=== PATIENT | female | born 1955 | race Caucasian/White ===

== ENCOUNTER 2018-09-07 11:03 | Observation (INO) ==
[2018-09-07] MEDS ORDERED: 0.9 % Sodium Chloride 500 ML IVC ONE (11:12)
--- NOTE | 2018-09-07 11:12 | Emergency Department Note ---
Disposition Clinical Impression: Chest pain Qualifiers: Chest pain type: precordial pain Qualified Code(s): R07.2 - Precordial pain Syncope Qualifiers: Syncope type: unspecified Qualified Code(s): R55 - Syncope and collapse Disposition: Transfer Short-Term Hosp Condition: Fair Referrals: Janet Calles, APPLICATION INTEGRATION SPECIALIST [Primary Care Provider] - Forms: ED Satisfaction Letter Time of Disposition: 14:21 Chest Pain HPI - General Chief Complaint: ED Chest Pain Stated Complaint: vertigo, chest pain Time Seen by Provider: 09/07/18 11:07 Source: patient, EMS Mode of arrival: EMS Limitations: no limitations Vital Signs Reviewed: Yes Nursing Notes Reviewed: Yes - History of Present Illness HPI Narrative: Patient relates about 45 minutes prior to arrival she had onset of feeling "super dizzy" while sitting. She states she then "passed out on the couch". She was not having vertiginous dizziness. She denies any injury. She says initially she is having no chest pain or palpitation but when she is being transported by EMS she had an ache in her chest. This radiated to the mid scapular region. She can only describe it as a "just hurt". This was not ripping or tearing. She has had some slight shortness of breath but denies diaphoresis. She denies abdominal pain. She has had nausea and vomiting with the pain. She denies any low back pain and right lower extremity complaints. She has not had recent immobilization, injury or leg swelling. She does have history of previous [place]. At time of my examination her complaint is that she is "just cold and nauseated". She states she is no longer having the pain. She does look somewhat pale and uncomfortable. Her blood pressure on arrival is 116/81 with a heart rate of 75. EMS did establish an IV and transmit an EKG. This demonstrated a heart rate of about 60 with significant baseline artifact. This was a sinus rhythm and did not demonstrate acute ST or T-wave changes. This is on my interpretation. Pt complaint: chest pain, other (Syncope) Onset (ago): minute(s) (45) Duration: constant Onset: during rest Pain Location: substernal Severity: moderate Quality: other ("Just hurting") Pain Radiation: back (Mid scapular) Improves with: nothing Worsens with: nothing Associated symptoms: Reports: nausea, vomiting, diaphoresis, dyspnea. Denies: syncope, palpitations, fever, cough, leg swelling Treatments prior to arrival chest pain: aspirin (By EMS) - Related Data Home Medications Medication Instructions Recorded Confirmed Carvedilol [Coreg] 25 mg PO BID 09/07/18 09/07/18 Chlorthalidone 50 mg PO DAILY 09/07/18 09/07/18 Ergocalciferol (VITAMIN D2) 50,000 unit PO DAILY 09/07/18 09/07/18 [Vitamin D2] Losartan Potassium [Cozaar] 100 mg PO DAILY 09/07/18 09/07/18 Nitroglycerin [Nitrostat] 0.4 mg SL Q5-10MIN PRN 09/07/18 09/07/18 Pantoprazole Sodium [Protonix] 40 mg PO BID 09/07/18 09/07/18 Pravastatin Sodium [Pravachol] 40 mg PO DAILY 09/07/18 09/07/18 Sertraline [Zoloft] 50 mg PO DAILY 09/07/18 09/07/18 hydrOXYzine HCl [Hydroxyzine HCl] 50 mg PO TID PRN 09/07/18 09/07/18 Allergies Allergy/AdvReac Type Severity Reaction Status Date / Time No Known Allergies Allergy Verified 09/07/18 11:04 All systems ED: reviewed and negative except as stated. Chest Pain PMH - Past Medical History Medical history: Reports: coronary artery disease, hyperlipidemia, hypertension, myocardial infarction Surgical history: Reports: angioplasty/stent, hysterectomy Psychiatric history: Reports: anxiety - Social History Smoking Status: Former smoker Alcohol use: Reports: none Drug use: Reports: none Physical Exam - General Limitations: no limitations General appearance: alert, anxious - Head Head exam: atraumatic, normocephalic, normal inspection - Eye Eye exam: Present: normal appearance, PERRL, EOMI. Absent: scleral icterus, conjunctival injection - ENT ENT exam: normal exam, normal oropharynx, mucous membranes moist - Neck Neck exam: Present: normal inspection, full ROM, trachea midline - Chest Chest inspection: Present: normal inspection, symmetric chest wall rise - Respiratory Respiratory exam: Present: normal lung sounds bilaterally. Absent: respiratory distress, wheezes, prolonged expiratory phase - Cardiovascular Cardiovascular exam: Present: regular rate, normal rhythm, normal heart sounds. Absent: bradycardia, tachycardia - Abdominal Exam Abdominal exam: Present: soft, Non-Tender, normal bowel sounds. Absent: tenderness, distention, guarding, rebound, rigidity, pulsatile mass - Extremities Exam Extremities exam: Present: normal inspection, full ROM, normal capillary refill. Absent: tenderness, pedal edema, calf tenderness - Expanded Lower Extremity Exam Neurovascular/Tendon exam: Present: normal capillary refill. Absent: motor deficit, sensory deficit, tendon deficit Gait: not tested/not observed - Back Exam Back exam: Present: normal inspection, full ROM. Absent: tenderness - Neurological Exam Neurological exam: Present: alert, oriented X3 - Psychiatric Psychiatric exam: Present: normal affect, anxious - Skin Skin exam: Present: warm, dry, intact, pallor. Absent: diaphoresis Course Course Narrative: 1157: I have contacted radiology as this patient has mild elevation of her creatinine and a GFR of 36. This may require adjustment to her study or transfer for ultrasound evaluation. She is resting comfortably at this time and maintaining good pulse, respirations and blood pressure. Blood pressure is 110/69 and a heart rate of 85, respiratory rate of 23 and an oxygen saturation of 97% on supplemental oxygen. 1220: Radiologist was agreeable with performing the CT angiogram of the chest/aorta with a reduced contrast bolus. Advised this will decrease the sensitivity of the test but will be preservative to kidney function. She has received a saline bolus and will continue with IV fluids. She will need continued observation, IV fluids and recheck of her renal function inpatient. 1420: With return of all testing, care has been discussed with the patient, family and Dr. Villanueva. Given her mild renal insufficiency and administration of IV contrast, continued IV hydration and recheck of her chemistries would be indicated inpatient. She also has no clear etiology for her episode of syncope or subsequent chest pain. Repeat troponin has been ordered for 6 PM and repeat chemistries for the morning. She will need to remain on monitoring to evaluate for possible dysrhythmia. I believe she is currently stable for observation at this facility. Dr. Villanueva has given verbal orders for observation. Vital Signs Temperature 99.1 F 09/07/18 11:05 Pulse Rate 85 09/07/18 11:05 Respiratory Rate 18 09/07/18 11:05 Blood Pressure 116/81 09/07/18 11:05 O2 Sat by Pulse Oximetry 92 09/07/18 11:05 Temperature 99.1 F 09/07/18 11:05 Pulse Rate 91 09/07/18 13:13 Respiratory Rate 16 09/07/18 13:13 Blood Pressure 121/62 09/07/18 13:13 O2 Sat by Pulse Oximetry 94 09/07/18 13:13 Oxygen Delivery Oxygen Delivery Nasal Cannula Chest Pain - Differential Diagnosis Likely: unstable angina pectoris (Aortic dissection), atypical chest pain, costalchondritis, chest pain - Medical Records Medical records reviewed: Yes I reviewed the patient's medical records. - Lab Data Lab results reviewed: Yes I reviewed the patient's lab results. Result diagrams: 09/07/18 11:27 09/07/18 11:27 Lab Results 09/07/18 09/07/18 09/07/18 Range/Units 11:27 11:27 11:27 WBC 10.2 (4.3-11.1) K/mcL RBC 4.43 (3.82-4.97) M/mcL Hgb 14.4 (11.5-15.4) g/dL Hct 42.5 (35.3-44.9) % MCV 95.9 (83.0-100.0) fL MCH 32.5 (28.0-33.3) pg MCHC 33.9 (31.6-35.5) g/dL RDW 12.8 (11.5-14.5) % Plt Count 157 (140-400) K/mcL MPV 10.2 (9.4-12.4) fL Immature Gran % 0.2 (0-4) % Seg Neutrophils % 88.0 % Lymphocytes % 7.8 % Monocytes % 1.9 % Eosinophils % 1.7 % Basophils % 0.4 % Neutrophils # 9.0 H (1.6-8.9) K/mcL Lymphocytes # 0.8 (0.6-4.6) K/mcL Monocytes # 0.2 (0.0-1.3) K/mcL Eosinophils # 0.2 (0.0-0.6) K/mcL Basophils # 0.0 (0.0-0.2) K/mcL PT 11.4 (9.4-12.1) Seconds INR 1.0 APTT 28.2 (26.0-36.0) Seconds D-Dimer 1674 H (0-500) ng/mLFEU Sodium (136-145) mEq/L Potassium (3.5-5.1) mEq/L Chloride (98-107) mEq/L Carbon Dioxide (23-29) mEq/L BUN (8-23) mg/dL Creatinine (0.60-1.20) mg/dL Est GFR ( Amer) (> 60) Est GFR (Non-Af Amer) (> 60) BUN/Creatinine Ratio (6-26) Glucose (70-105) mg/dL Calculated Osmolality (280-300) Calcium (8.6-10.3) mg/dL Troponin I (< 0.04) ng/mL B-Natriuretic Peptide 29 (Less than 100) pg/mL 09/07/18 Range/Units 11:27 WBC (4.3-11.1) K/mcL RBC (3.82-4.97) M/mcL Hgb (11.5-15.4) g/dL Hct (35.3-44.9) % MCV (83.0-100.0) fL MCH (28.0-33.3) pg MCHC (31.6-35.5) g/dL RDW (11.5-14.5) % Plt Count (140-400) K/mcL MPV (9.4-12.4) fL Immature Gran % (0-4) % Seg Neutrophils % % Lymphocytes % % Monocytes % % Eosinophils % % Basophils % % Neutrophils # (1.6-8.9) K/mcL Lymphocytes # (0.6-4.6) K/mcL Monocytes # (0.0-1.3) K/mcL Eosinophils # (0.0-0.6) K/mcL Basophils # (0.0-0.2) K/mcL PT (9.4-12.1) Seconds INR APTT (26.0-36.0) Seconds D-Dimer (0-500) ng/mLFEU Sodium 140 (136-145) mEq/L Potassium 3.3 L (3.5-5.1) mEq/L Chloride 98 (98-107) mEq/L Carbon Dioxide 33 H (23-29) mEq/L BUN 23 (8-23) mg/dL Creatinine 1.48 H (0.60-1.20) mg/dL Est GFR ( Amer) 43 L (> 60) Est GFR (Non-Af Amer) 36 L (> 60) BUN/Creatinine Ratio 16 (6-26) Glucose 125 H (70-105) mg/dL Calculated Osmolality 295 (280-300) Calcium 9.2 (8.6-10.3) mg/dL Troponin I < 0.03 (< 0.04) ng/mL B-Natriuretic Peptide (Less than 100) pg/mL - Radiology Data Radiology results reviewed: Yes I reviewed the patient's radiology results. Single view chest x-ray is performed. This does not demonstrate evidence for infiltrate, effusion, pneumothorax, foreign body or heart failure. The cardiac silhouette is normal. I do not see abnormality to the osseous structures of the chest. This is on my interpretation. CT is performed of the chest, abdomen and pelvis with reduced IV contrast. Impressions Chest X-Ray 09/07/18 11:12 IMPRESSION: No acute process. Bibasilar hypoaeration D/ / Daniel Mcfarlane MD / Daniel Mcfarlane MD Interpreting Provider: Daniel Mcfarlane MD Chest CTA 09/07/18 11:13 IMPRESSION: No aortic dissection. Borderline dilated descending thoracic aorta measuring 3.1 cm. 3.6 cm abdominal aortic aneurysm. Recommend follow-up every 2 years. Reference: J Vasc Surg 2008;50(4 Suppl):S2-49. Multiple additional chronic findings as described above. D/ / Lc Treviño MD / Lc Treviño MD Interpreting Provider: Lc Treviño MD Abdomen/Pelvis CTA 09/07/18 13:25 IMPRESSION: No aortic dissection. Borderline dilated descending thoracic aorta measuring 3.1 cm. 3.6 cm abdominal aortic aneurysm. Recommend follow-up every 2 years. Reference: J Vasc Surg 2008;50(4 Suppl):S2-49. Multiple additional chronic findings as described above. D/ / Lc Treviño MD / Lc Treviño MD Interpreting Provider: Lc Treviño MD In the distal abdominal aorta there is abnormal lumen areas of wall thickening. The aorta is dilated to 3.4 x3.6 mm in this area. The opacified, perfusing lumen is a little over 2 cm in size. Mesenteric and splenic vessels do not appear to be impaired. I do not see evidence for pulmonary embolism, pneumonia, pneumothorax or heart failure. There is no evidence for free fluid or retroperi toneal fluid. This is on my interpretation. - EKG Data EKG attestation: Yes I reviewed and interpreted this EKG. EKG shows normal: sinus rhythm, axis, intervals, QRS complexes, ST-T waves Rate: normal (70) [place]/QRS: IVCD Interpretation: no acute changes, nonspecific ST-T wave changes Heart Score - Score History: Moderately Suspicious EKG: Non Specific repolarisation Disturbance Age: 45-65 Risk Factors: Equal/Greater than 3 risk factor or history of atherosclerotic disease Troponin: Less than normal limit HEART Score Total: 5
[2018-09-07] MEDS ORDERED: Isovue-370 500 ML BOTTLE IVP ONE ×2 (11:13→17:45)
[2018-09-07] MEDS ORDERED: Ondansetron 4 MG/2 ML VIAL IVP ONE (11:14)
[2018-09-07 11:33] LABS: Basophils % 0.4 %; Eosinophils # 0.2 K/mcL (0.0-0.6); Eosinophils % 1.7 %; Hematocrit 42.5 % (35.3-44.9); Hemoglobin 14.4 g/dL (11.5-15.4); Immature Granulocytes % 0.2 % (0-4); Lymphocytes # 0.8 K/mcL (0.6-4.6); Lymphocytes % 7.8 %; Mean Corpuscular HGB Conc 33.9 g/dL (31.6-35.5); Mean Corpuscular Hemoglobin 32.5 pg (28.0-33.3); Mean Corpuscular Volume 95.9 fL (83.0-100.0); Mean Platelet Volume 10.2 fL (9.4-12.4); Monocytes # 0.2 K/mcL (0.0-1.3); Monocytes % 1.9 %; Platelet Count 157 K/mcL (140-400); Red Blood Count 4.43 M/mcL (3.82-4.97); Red Cell Distribution Width 12.8 % (11.5-14.5); White Blood Count 10.2 K/mcL (4.3-11.1)
[2018-09-07 11:46] LABS: Prothrombin Time 11.4 Seconds (9.4-12.1)
[2018-09-07 11:48] LABS: Activated Partial Thrombo Time 28.2 Seconds (26.0-36.0); BUN/Creatinine Ratio 16 (6-26); Blood Urea Nitrogen 23 mg/dL (8-23); Calcium 9.2 mg/dL (8.6-10.3); Carbon Dioxide 33 mEq/L (23-29); Chloride 98 mEq/L (98-107); Glucose 125 mg/dL (70-105); Osmolality,Calculated 295 (280-300); Potassium 3.3 mEq/L (3.5-5.1); Sodium 140 mEq/L (136-145); eGFR For African Americans 43 (> 60); eGFR For Non-African Americans 36 (> 60)
[2018-09-07 11:52] LABS: Troponin I < 0.03 ng/mL (< 0.04)
[2018-09-07] MEDS ORDERED: 0.9 % Sodium Chloride 1,000 ML IVC SCH (12:30)
--- NOTE | 2018-09-07 16:13 | Electrocardiograph Report ---
[place] [id number] Test Date: 2018-09-07 Pat Name: Rosa Hill Department: EDP-16 Room: Gender: F Print Journalist: : 1955 Requested By: Nicholas Burger Order Number: [id number] Reading MD: Jared Fletcher Measurements Intervals [place] Rate: 70 P: 69 RI: 184 QRS: -31 QRSD: 113 T: 53 QT: 403 QTc: 435 Interpretive Statements Sinus rhythm Borderline IVCD with LAD Consider anterior infarct Electronically Signed On 09-07-2018 16:11:25 EDT by Jared Fletcher
[2018-09-07] MEDS ORDERED: Nitroglycerin 0.4 MG TAB.SUBL SL PRN (17:45)
[2018-09-07] MEDS ORDERED: hydrOXYzine pamoate 25 MG CAPSULE PO PRN (17:45)
[2018-09-07] MEDS ORDERED: Ondansetron ODT 4 MG TAB.RAPDIS SL PRN (17:45)
[2018-09-07] MEDS ORDERED: Mag Hydrox/Al Hydrox/Simeth 30 ML UDC PO PRN (17:45)
[2018-09-07] MEDS ORDERED: Naloxone 0.4 MG/ML INJ IVP PRN (17:45)
[2018-09-07] MEDS ORDERED: MOM Conc 10 ML UD.LIQ PO PRN (17:45)
[2018-09-07] MEDS: 0.9 % Sodium Chloride 1,000 ML IVC SCH ×2 (18:08→21:09)
[2018-09-07] MEDS: Acetaminophen 325 MG TABLET PO PRN (21:54)
[2018-09-08] MEDS ORDERED: Acetaminophen 325 MG TABLET PO PRN (01:50)
[2018-09-08] MEDS: Acetaminophen 325 MG TABLET PO PRN (04:18)
[2018-09-08] MEDS: 0.9 % Sodium Chloride 1,000 ML IVC SCH (05:10)
[2018-09-08 08:01] LABS: Calcium 8.5 mg/dL (8.6-10.3); Potassium 2.7 mEq/L (3.5-5.1)
--- NOTE | 2018-09-08 12:02 | Internal Med History&Physical ---
Date of Encounter: 09/08/18 Time of Encounter: 11:30 Assessment and Plan (1) Syncope Current visit: Yes Status: Acute Now asymptomatic. Etiology not obvious. IV fluids have been started. Supplemental potassium will be given. Magnesium level will be checked. Qualifiers: Syncope type: unspecified Qualified Code(s): R55 - Syncope and collapse (2) Hypertension Current visit: Yes Status: Chronic Hold antihypertensive medication since blood pressure line low. Qualifiers: Hypertension type: essential hypertension Qualified Code(s): I10 - Essential (primary) hypertension (3) Hypokalemia Current visit: Yes Status: Acute Likely due to chlorthalidone. Hold chlorthalidone and give supplemental po tassium. (4) Hyperuricemia Current visit: Yes Status: Acute Uric acid was elevated at 8.3 on 06/10/2018. Recheck today. (5) CKD (chronic kidney disease) stage 3, GFR 30-59 ml/min Current visit: Yes Status: Chronic Monitor renal indices. (6) Chest pain Current visit: Yes Status: Acute Repeat cardiac enzymes were ordered in emergency room. Qualifiers: Chest pain type: precordial pain Qualified Code(s): R07.2 - Precordial pain (7) Abdominal aortic aneurysm Current visit: Yes Status: Acute Abdomen CTA showed 3.6 cm abdominal aortic aneurysm. Recommended follow-up in 2 years. Qualifiers: Presence of rupture: without rupture Qualified Code(s): I71.4 - Abdominal aortic aneurysm, without rupture Internal Medicine - H&P: HPI Chief complaint: Syncope, hypokalemia Admitted From: Emergency Dept Plans for Post Hospital Care: Home History of present illness: Ms. Hill is a 63 year old female who came to emergency room following a syncopal episode at home. She states she was sitting on the couch and developed a feeling of non-vertigo lightheadedness. She had loss of consciousness and fell over onto the couch without injury. Her significant other observed the syncopal episode and called EMS. She was brought to emergency room and evaluated and admitted to [facility] floor for ongoing care needs. She reports no fevers chills cough or dyspnea with the above episode. She had a slight sensation of chest pressure which has now resolved. She denies previous syncopal or near syncopal episodes. She denies orthostatic symptoms on arising from a seated position. She does not get angina or anginal equivalents on activities including ascending a flight of 12 steps at home. 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 She had one stent placed at the time of the first MA in 2003. She reports a heart cath a few years ago at [facility] showed no significant stenoses requiring intervention. She denies heart failure DVT or pulmonary embolus. Echocardiogram 01/12/2018 showed LVEF of 60%. There was mild aortic stenosis, mild mitral regurgitation, and mild tricuspid regurgitation. Interventricular septum and posterior wall thickness measurements were 1.23 and 0.82 cm respectively. There was LAE at 4.50 cm. The E/A ratio was 0.6. Neurologic history is negative for large distribution strokes or seizures. She denies previous syncopal or near syncopal episodes. Past Med Surg Social Fam HX - Past Medical History Medical history: coronary artery disease, hyperlipidemia, hypertension, myocardial infarction Psychiatric history: anxiety - Past Surgical History Surgical History: angioplasty/stent, hysterectomy Additional surgical history: bleeding ulcer about 3 years ago. - Social History Smoking Status: Former smoker Smokeless Tobacco Status: No Alcohol use: none Drug use: none - Family History Maternal Living Status: Hx Family Cardiac Disorders: Yes Hx Family Neurologic Disorders: Yes Father Living Status: Hx Family Cancer: Yes Sister Living Status: Hx Family Cancer: Yes Internal Medicine - H&P: Meds Carvedilol [Coreg] 25 mg PO BID 09/07/18 [History] Chlorthalidone 50 mg PO DAILY 09/07/18 [History] Ergocalciferol (VITAMIN D2) [Vitamin D2] 50,000 unit PO DAILY 09/07/18 [History] Losartan Potassium [Cozaar] 100 mg PO DAILY 09/07/18 [History] Nitroglycerin [Nitrostat] 0.4 mg SL Q5-10MIN PRN 09/07/18 [History] Pantoprazole Sodium [Protonix] 40 mg PO BID 09/07/18 [History] Pravastatin Sodium [Pravachol] 40 mg PO DAILY 09/07/18 [History] Sertraline [Zoloft] 50 mg PO DAILY 09/07/18 [History] hydrOXYzine HCl [Hydroxyzine HCl] 50 mg PO TID PRN 09/07/18 [History] Allergy/AdvReac Type Severity Reaction Status Date / Time No Known Allergies Allergy Verified 09/07/18 11:04 All Systems PM: A 10-system review of systems was performed and is negative for pertinent findings except as documented above in the HPI. Review of systems: Gen.: She states her weight has increased approximately 50 pounds in the past year. Cardiovascular: As per history of present illness Respiratory: She smoked from age [age] up to 1 pack per day. She has not had PFTs and does not use home oxygen. She has not been tested for JORDAN. GI: She had bleeding peptic ulcer disease in 2015 requiring endoscopy with cauterization. She has had no recurrent bleeding. She denies disorders of her liver gallbladder or exocrine pancreas : She had an asymptomatic kidney stone found on ultrasound a few months ago. 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 She denies other kidney or bladder disorders. Neurologic: As per history of present illness Endocrine: She has hyperlipidemia but denies diabetes or thyroid disease Hematology/oncology: She denies blood disorders cancers or anemia Psychiatric: She has anxiety but denies depression or other mental health issues. [place] skeletal: She denies arthritis gout or other bone joint or muscle disorders. - Constitutional Vitals: Temp Pulse Resp BP Pulse Ox 98.8 F 78 18 106/63 92 09/08/18 11:10 09/08/18 11:10 09/08/18 11:10 09/08/18 11:10 09/08/18 11:10 Exam: Gen.: She is a well-developed well-nourished female sitting in a chair at bedside appears in no acute distress HEENT: Head is atraumatic and normocephalic. Eyes: EOMI. There is no scleral icterus. Mouth: Mucosa is moist. Neck: There is no thyromegaly or adenopathy noted. Heart: Regular without murmurs gallops or ectopics Lungs: No wheezes or crackles are heard. Abdomen: Soft and nontender. No masses or guarding are noted. Extremities: There is no cyanosis edema or clubbing noted. Dorsalis pedis and posterior tibial pulses are trace to 1+ palpable bilaterally. Neurologic: Mental status: She is talkative and a good historian. Cranial nerves: Smile is symmetric. Forehead wrinkles bilaterally. Tongue protrudes midline. EOMI. Motor: There is no pronator drift. Cerebellar: Kali to nose is intact bilaterally. Skin: Warm and dry Internal Med - H&P Results - Labs CBC & Chem 7: 09/07/18 11:27 09/08/18 06:45 Labs: BMP 09/08/18 06:45 Sodium 141 Potassium 2.7 L Chloride 101 Carbon Dioxide 31 H BUN 18 Creatinine 1.27 H Glucose 139 H Calcium 8.5 L Cardiac Enzymes 09/07/18 Range/Units 20:18 Troponin I < 0.03 (< 0.04) ng/mL - Impressions ITS Impressions Chest X-Ray 09/07/18 11:12 IMPRESSION: No acute process. Bibasilar hypoaeration D/ / Daniel Mcfarlane MD / Daniel Mcfarlane MD Interpreting Provider: Daniel Mcfarlane MD Chest CTA 09/07/18 11:13 IMPRESSION: No aortic dissection. Borderline dilated descending thoracic aorta measuring 3.1 cm. 3.6 cm abdominal aortic aneurysm. Recommend follow-up every 2 years. Reference: J Vasc Surg 2009 Oct;50(4 Suppl):S2-49. Multiple additional chronic findings as described above. D/ / Lc Treviño MD / Lc Treviño MD Interpreting Provider: Lc Treviño MD Abdomen/Pelvis CTA 09/07/18 13:25
[2018-09-08 12:29] LABS: Magnesium 1.4 mg/dL (1.6-2.6); Uric Acid 7.8 mg/dL (2.3-7.6)
[2018-09-08] MEDS ORDERED: Magnesium Oxide 400 MG TABLET PO ONE (12:45)
[2018-09-08 13:11] VITALS: BP 92/59
[2018-09-08 14:28] LABS: Calcium 8.4 mg/dL (8.6-10.3); Potassium 3.1 mEq/L (3.5-5.1)
--- NOTE | 2018-09-08 14:59 | Discharge Summary ---
Date of Encounter: 09/08/18 Time of Encounter: 14:48 - Discharge Diagnosis (1) Syncope Priority: Primary Status: Acute Qualifiers: Syncope type: unspecified Qualified Code(s): R55 - Syncope and collapse (2) Hypertension Priority: Secondary Status: Chronic Qualifiers: Hypertension type: essential hypertension Qualified Code(s): I10 - Essential (primary) hypertension (3) Hypokalemia Priority: Secondary Status: Acute (4) Hyperuricemia Priority: Secondary Status: Acute (5) CKD (chronic kidney disease) stage 3, GFR 30-59 ml/min Priority: Secondary Status: Chronic (6) Chest pain Priority: Secondary Status: Resolved Qualifiers: Chest pain type: precordial pain Qualified Code(s): R07.2 - Precordial pain (7) Abdominal aortic aneurysm Priority: Secondary Status: Acute Qualifiers: Presence of rupture: without rupture Qualified Code(s): I71.4 - Abdominal aortic aneurysm, without rupture (8) Hypomagnesemia Priority: Secondary Status: Acute (9) Hypoxemia Priority: Secondary Status: Acute Hospital course: Ms. Hill is a 63 year old female who came to emergency room following a syncopal episode at home. She states she was sitting on the couch and developed a feeling of non-vertigo lightheadedness. She had loss of consciousness and fell over onto the couch without injury. Her significant other observed the syncopal episode and called EMS. She was brought to emergency room and evaluated and admitted to [facility] for ongoing care needs. Initial orders were written by the emergency room physician. I saw her on September 08 and performed a history and physical. She had no further syncopal or near syncopal episodes. The etiology of the episode at home leading to admission was not determined with certainty. IV fluids were given and azotemia improved with BUN and creatinine decreasing to 17 and 1.33 respectively by day of discharge. Her PCP can monitor renal indices. Potassium level decreased further to 2.7 the morning of September 08. Supplemental potassium was given and her level had risen to 3.1 by the early afternoon of September 08. Chlorthalidone dose will be decreased to 25 mg daily and ongoing daily supplemental potassium will be prescribed at discharge. Her PCP can monitor labs. Magnesium level returned low at 1.4. I explained this was likely due to chlorthalidone. She will take magnesium oxide 400 mg daily for a week. Her PCP can monitor labs on the reduced dose chlorthalidone. Uric acid level returned elevated 7.8. I explained to the patient this also was likely due to chlorthalidone use. Her PCP can monitor uric acid level. She spiked fever up to 102.5 in the mouse breeder hours of September 08. Pro- calcitonin level returned elevated at 7.66. She remained afebrile after the single temperature spike. She denied cough dyspnea or dysuria. Antibiotics were not given. Her PCP can monitor. Chest and abdomen CTA was ordered in emergency room to further evaluate complaints of chest pain and elevated d-dimer. No aortic dissection was identified. There was borderline dilated descending thoracic aorta at 3.1 cm and a 3.6 cm abdominal aortic aneurysm. Recommendation for follow-up every 2 years was made. I did not discuss the aneurysm findings with the patient. Room air oximetry on 6 minute walk showed saturation decreasing to 88% prior to initiating ambulation. The patient became more dyspneic and required reapplication of oxygen for comfort and safety. She will be prescribed oxygen 2 L/m by nasal cannula 30/09 with portable gas and concentrator. Qualifying diagnosis of COPD with hypoxemia not corrected by use of bronchodilator. On the afternoon September 08 the patient felt improved and was adamant she be discharged home. I offered keeping her another day to monitor labs for further correction but she declined and wished to be discharged home. She will follow with her PCP Janet Calles CNP within 1 week. - Time Spent with Patient Total time spent providing and/or coordinating discharge services: - Discharge Medications Prescriptions: New Carvedilol [Coreg] 25 mg PO DAILY tablet Magnesium Oxide 400 mg PO DAILY #7 tablet Potassium Chloride 10 meq PO DAILY #30 tab.er.prt Continued Pantoprazole Sodium [Protonix] 40 mg PO BID Ergocalciferol (VITAMIN D2) [Vitamin D2] 50,000 unit PO DAILY Sertraline [Zoloft] 50 mg PO DAILY Nitroglycerin [Nitrostat] 0.4 mg SL Q5-10MIN PRN PRN Reason: Chest Pain Pravastatin Sodium [Pravachol] 40 mg PO DAILY hydrOXYzine HCl [Hydroxyzine HCl] 50 mg PO TID PRN PRN Reason: Anxiety Changed Chlorthalidone 25 mg PO DAILY #0 Losartan Potassium [Cozaar] 50 mg PO DAILY #0 Discontinued Carvedilol [Coreg] 25 mg PO BID Home Medications: Ergocalciferol (VITAMIN D2) [Vitamin D2] 50,000 unit PO DAILY 09/07/18 [History] Nitroglycerin [Nitrostat] 0.4 mg SL Q5-10MIN PRN 09/07/18 [History] Pantoprazole Sodium [Protonix] 40 mg PO BID 09/07/18 [History] Pravastatin Sodium [Pravachol] 40 mg PO DAILY 09/07/18 [History] Sertraline [Zoloft] 50 mg PO DAILY 09/07/18 [History] hydrOXYzine HCl [Hydroxyzine HCl] 50 mg PO TID PRN 09/07/18 [History] Carvedilol [Coreg] 25 mg PO DAILY tablet 09/08/18 [Rx] Chlorthalidone 25 mg PO DAILY #0 09/08/18 [Rx] Losartan Potassium [Cozaar] 50 mg PO DAILY #0 09/08/18 [Rx] Magnesium Oxide 400 mg PO DAILY #7 tablet 09/08/18 [Rx] Potassium Chloride 10 meq PO DAILY #30 tab.er.prt 09/08/18 [Rx] Allergies/Adverse Reactions: Allergy/AdvReac Type Severity Reaction Status Date / Time No Known Allergies Allergy Verified 09/07/18 11:04 Date of admission: 09/07/18 17:39 Primary care physician: Janet Calles CNP - Constitutional Vitals: Temp Pulse Resp BP Pulse Ox 98.1 F 64 20 92/59 90 09/08/18 13:10 09/08/18 13:10 09/08/18 13:10 09/08/18 13:10 09/08/18 13:10 - Patient Status Disposition: Home, Self-Care Condition: Fair - Discharge Instructions Follow Up With: Janet Calles CNP [Primary Care Provider] - 1 week - Diet and Activity Activity: wear oxygen at all times Diet: advance to your usual diet
== END 2018-09-08 15:43 | disposition home or self-care (01) ==
LOC: INPPIK 11:03 → EMEROOPIK 11:03 → INPPIK 17:45
PROVIDERS: ADMIT Internal Medicine; ATTEND Internal Medicine